=== PATIENT | male | born 2000 | race American Indian/Alaskan Native ===

== ENCOUNTER 2019-10-27 16:58 | Emergency (ER) | payer SELFPAY ==
[2019-10-27 17:20] VITALS: BP 133/78
[2019-10-27] MEDS ORDERED: ONDANSETRON 4 MG ODT TAB PO ONE (18:13)
--- NOTE | 2019-10-27 18:15 | Event Note ---
ED Screening Note Date of service: 10/27/19 Time: 18:11 ED Screening Note: 18-year-old -[place] male with a history of diabetes presents to the emergency room complaining of vomiting up blood. Patient quantifies it as a teaspoon x2. Last vomited 4 last had something to drink at 230. Blood sugars 237. Patient currently on NovoLog sliding scale. He does admit to nausea he has been able to drink. Denies any pain This initial assessment/diagnostic orders/clinical plan/treatment(s) is/are subject to change based on patients health status, clinical progression and re- assessment by fellow clinical providers in the ED. Further treatment and workup at subsequent clinical providers discretion. Patient/guardian urged not to elope from the ED as their condition may be serious if not clinically assessed and managed. Initial orders include:
== END 2019-10-27 20:37 | disposition left against medical advice (07) ==
LOC: ED 16:58
DX: R11.10 Vomiting, unspecified (principal); Z53.21 Procedure and treatment not carried out due to patient leaving prior to being seen by health care provider
CPT/HCPCS: 82962

== ENCOUNTER 2020-02-02 20:03 | Emergency (ER) | payer SELFPAY ==
[2020-02-02 21:21] VITALS: BP 117/78
[2020-02-02 21:42] LABS: Basophils % (Auto) 0.5 % (0.0-1.8); Eosinophils # (Auto) 0.2 K/mm3 (0.0-0.4); Eosinophils % (Auto) 2.1 % (0.0-4.3); Hematocrit 50.3 % (35.5-45.6); Hemoglobin 17.2 gm/dl (11.8-15.2); Lymphocytes % (Auto) 38.9 % (13.4-35.0); Mean Corpuscular HGB Conc 34 % (32-34); Mean Corpuscular Volume 90 fl (84-94); Monocytes # (Auto) 0.6 K/mm3 (0.0-0.8); Monocytes % (Auto) 7.4 % (0.0-7.3); Platelet Count 335 K/mm3 (140-440); Red Blood Count 5.57 M/mm3 (3.65-5.03)
[2020-02-02 22:02] LABS: Blood Urea Nitrogen 7 mg/dL (9-20); Calcium 9.9 mg/dL (8.4-10.2); Hemolysis Index 9
[2020-02-02 22:05] LABS: BUN/Creatinine Ratio 10
== END 2020-02-03 | disposition left against medical advice (07) ==
LOC: ED 20:03
DX: Z76.0 Encounter for issue of repeat prescription (principal); Z53.21 Procedure and treatment not carried out due to patient leaving prior to being seen by health care provider
CPT/HCPCS: 36415; 80048; 82962; 85025

== ENCOUNTER 2020-02-03 15:58 | Emergency (ER) | payer SELFPAY ==
--- NOTE | 2020-02-03 19:29 | Emergency Department Report ---
ED General Adult HPI - General Chief complaint: Medical Clearance Stated complaint: RAN OUT OF INSULIN Source: patient Mode of arrival: Ambulatory Limitations: No Limitations - History of Present Illness Initial comments: Patient is a 19-year-old -Citizen Of [place] male with a history of type 1 diabetes who presents to the ED requesting for a refill of his insulin Lantus and NovoLog that he ran out of 24 hours ago. Patient states that he was initially evaluated extensively 24 hours ago in this ED and had to leave prior to being discharged from the ED to attend to a family emergency 24 hours ago. Patient denies dizziness, diaphoresis, polyuria, polydipsia, syncope, chest pain, shortness of breath, nausea, vomiting, generalized weakness or fatigue, fever or chills, cough, headache or abdominal pain. MD Complaint: Type 1 diabetic, here for refill of insulin -: Sudden, hour(s) (24) Radiation: non-radiation Severity scale (0 -10): 0 Consistency: constant Improves with: none Worsens with: none Associated Symptoms: denies other symptoms. denies: confusion, chest pain, cough, diaphoresis, fever/chills, headaches, malaise, nausea/vomiting, shortness of breath, syncope, weakness Treatments Prior to Arrival: none - Related Data Previous Rx's Medication Instructions Recorded Last Taken Type Insulin Aspart (Nf) [Novolog] 1 units SQ DAILY PRN #10 ml 02/03/20 Unknown Rx Insulin Glargine [Lantus VIAL] 22 unit SUB-Q QHS #10 ml 02/03/20 Unknown Rx Allergies Allergy/AdvReac Type Severity Reaction Status Date / Time No Known Allergies Allergy Verified 10/27/19 17:17 ED Review of Systems ROS: Stated complaint: RAN OUT OF INSULIN Other details as noted in HPI Constitutional: denies: chills, fever Eyes: denies: eye pain, eye discharge, vision change ENT: denies: ear pain, throat pain Respiratory: denies: cough, shortness of breath, wheezing Cardiovascular: denies: chest pain, palpitations Endocrine: no symptoms reported Gastrointestinal: denies: abdominal pain, nausea, diarrhea Genitourinary: denies: urgency, dysuria Musculoskeletal: denies: back pain, joint swelling, arthralgia Skin: denies: rash, lesions Neurological: denies: headache, weakness, paresthesias Psychiatric: denies: anxiety, depression Hematological/Lymphatic: denies: easy bleeding, easy bruising ED Past Medical Hx - Past Medical History Previous Medical History?: Yes Hx Diabetes: Yes - Social History Smoking Status: Never Smoker Substance Use Type: None - Medications Home Medications: Home Medications Medication Instructions Recorded Confirmed Last Taken Type Insulin Aspart (Nf) [Novolog] 1 units SQ DAILY PRN #10 ml 02/03/20 Unknown Rx Insulin Glargine [Lantus VIAL] 22 unit SUB-Q QHS #10 ml 02/03/20 Unknown Rx ED Physical Exam - General Limitations: No Limitations General appearance: alert, in no apparent distress - Head Head exam: Present: atraumatic, normocephalic, normal inspection - Eye Eye exam: Present: normal appearance, PERRL, EOMI Pupils: Present: normal accommodation - ENT ENT exam: Present: normal exam, normal orophraynx, mucous membranes moist, TM's normal bilaterally, normal external ear exam - Neck Neck exam: Present: normal inspection, full ROM - Respiratory Respiratory exam: Present: normal lung sounds bilaterally. Absent: respiratory distress, wheezes, rales, rhonchi, chest wall tenderness, accessory muscle use, prolonged expiratory - Cardiovascular Cardiovascular Exam: Present: normal rhythm, tachycardia, normal heart sounds. Absent: systolic murmur, diastolic murmur, rubs, gallop - GI/Abdominal GI/Abdominal exam: Present: soft, normal bowel sounds. Absent: tenderness, guarding, hyperactive bowel sounds, mass - Extremities Exam Extremities exam: Present: normal inspection, full ROM, normal capillary refill - Back Exam Back exam: Present: normal inspection, full ROM. Absent: tenderness, CVA tenderness (R), CVA tenderness (L), muscle spasm, paraspinal tenderness, vertebral tenderness - Neurological Exam Neurological exam: Present: alert, oriented X3, CN II-XII intact, normal gait, reflexes normal - Psychiatric Psychiatric exam: Present: normal affect, normal mood - Skin Skin exam: Present: warm, dry, intact, normal color. Absent: rash ED Course Vital Signs 02/03/20 16:06 Pulse Rate 102 H Respiratory 16 Rate Blood Pressure 139/72 O2 Sat by Pulse 98 Oximetry ED Medical Decision Making - Medical Decision Making This is a 19-year-old -Citizen Of [place] male with a history of type 1 diabetes who presents to the ED requesting for a refill of his insulin Lantus and NovoLog that he ran out of 24 hours ago. Patient states that he was initially evaluated extensively 24 hours ago in this ED and had to leave prior to being discharged from the ED to attend to a family emergency 24 hours ago. In the ED, patient is alert and oriented x3 and is not in distress. Patient was discharged home on a refill of NovoLog and Lantus and was advised to follow-up with his primary care physician in 3 to 5 days for reevaluation or return to the ED immediately if symptoms get worse. - Differential Diagnosis Hyperglycemia; dehydration; Critical care attestation.: If time is entered above; I have spent that time in minutes in the direct care of this critically ill patient, excluding procedure time. ED Disposition Clinical Impression: Medication refill, Type 1 diabetes mellitus on insulin therapy Disposition: TO HOME OR SELFCARE Is pt being admited?: No Does the pt Need Aspirin: No Condition: Stable Instructions: Diabetes Mellitus Type 2 in Adults (ED) Additional Instructions: Use insulin as previously advised. Follow-up with your primary care physician in 5 to 7 days for reevaluation. Return to the ED immediately if symptoms get worse. Prescriptions: Insulin Glargine [Lantus VIAL] 22 unit SUB-Q QHS #10 ml Insulin Aspart (Nf) [Novolog] 1 units SQ DAILY PRN #10 ml PRN Reason: Hyperglycemia Referrals: [facility] [Provider Group] - 3-5 Days Time of Disposition: 19:26 Print Language: HEBREW
[2020-02-03 19:39] VITALS: BP 132/86
== END 2020-02-03 19:38 | disposition home or self-care (01) ==
LOC: ED 15:58
DX: E10.8 Type 1 diabetes mellitus with unspecified complications (principal); Z76.0 Encounter for issue of repeat prescription; Z79.4 Long term (current) use of insulin
CPT/HCPCS: 99282